=== PATIENT | female | born 1990 | race Caucasian/White ===

== ENCOUNTER → 2021-12-25 12:24 | Outpatient (BNVA) | payer OTHER, SELFPAY | PROVIDERS: Visit Provider Physician Assistant | DX: S69.82XA Other specified injuries of left wrist, hand and finger(s), initial encounter (principal); X50.1XXA Overexertion from prolonged static or awkward postures, initial encounter | CPT/HCPCS: 29125; 73110; 99203 ==

== ENCOUNTER → 2021-12-31 10:59 | Outpatient (BNVA) | payer OTHER, SELFPAY | PROVIDERS: Visit Provider Physician Assistant | DX: S64.92XA Injury of unspecified nerve at wrist and hand level of left arm, initial encounter (principal); X58.XXXA Exposure to other specified factors, initial encounter | CPT/HCPCS: 99213 ==

== ENCOUNTER → 2022-01-16 13:53 | Outpatient (BNVA) | payer OTHER, SELFPAY | PROVIDERS: Visit Provider Internal Medicine | DX: M25.532 Pain in left wrist (principal) | CPT/HCPCS: 99213 ==

== ENCOUNTER 2023-05-17 15:32 | Outpatient (AMB) | payer OTHER, SELFPAY ==
--- NOTE | 2023-05-17 15:45 | A.OFFPC_ITS ---
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 Patient states she has an OBGYN with [facility] on [facility] in [place]. Patient would like to have a referral for dermatology. Patient states she has psoriasis on her scalp and during the summer time the patch isn't as symptomatic as in the winter time where symptoms begin and spread. Patient recalls using a ketoconazole shampoo and a solution for the scalp and she does not remember the name of the solution. Shirt Maker Required: No Accompanied by: Self / Same As Patient Allergies ondansetron [From Zofran] Allergy (Severe, Verified 05/17/23 16:19) Hives Medication List - Last Reconciled 05/17/23 by Sheba Hernandez CNP aspirin (Aspirin Childrens) 162 mg PO DAILY 21-iron fu-folic acid 14 mg iron- 400 mcg ( Complete) tabs PO vitamin B complex (B Complex-Vitamin B12 tablet) 1 tab PO TID Tobacco use date assessed: 05/17/23 Dental Screening Dental Screen Date: 05/17/23 Did you have a dental visit in the last 12 months?: No Did you have a dental problem in the last 6 months where you did not have access to dental care?: No Was dental information given to patient?: Patient has dentist HPI HPI Comments History of Present Illness Details 32-year-old female [facility]. She notes she was last evaluated by her former PCP and had blood work done 3-4 years ago She denies significant PMH She states she is currently on vitamins, vitamin B6, and baby asa. No acute symptoms today. She reports psoriasis on her scalp which flares in the winter. She was followed by Dermatology and have used ketoconazole shampoo in the past with good effect. She request a referral to Dermatology that would accept her health plan. She notes she is almost 25 weeks with monochorionic-diamniotic twins. . She is followed by [facility] OBGYN. She notes her last Pap smear was last month: Normal. [facility] Social History Housing: Apartment Patient Tobacco Use Status: Never used Tobacco e-Cigarette/Vaping Use: Never Used service: No Current occupational status: employed Current occupation: [employer] Current occupational exposures/hazards: No Cognitive needs: No Hearing needs: No Vision needs: No Questionnaire PHQ-9 Over the last 2 weeks, how often have you been bothered by any of the following problems? 1. Little interest or pleasure in doing things: not at all 2. Feeling down, depressed, or hopeless: not at all 3. Trouble falling or staying asleep, or sleeping too much: not at all 4. Feeling tired or having little energy: several days 5. Poor appetite or overeating: not at all 6. Feeling bad about yourself - or that you are a failure or have let yourself or your family down: not at all 7. Trouble concentrating on things, such as reading the newspaper or watching television: not at all 8. Moving or speaking so slowly that other people could have noticed. Or the opposite - being so fidgety or restless that you have been moving around a lot more than usual: not at all 9. Thoughts that you would be better off or of hurting yourself in some way: not at all Total score: 1 Depression Screening Interpretation: Negative 51414 - PHQ-9 Billing: Yes Source: Developed by Drs. Natan Lake, Niyah Lara, Weston Willis and colleagues, with an educational travis from [employer]. Thrive Questionnaire Date Thrive assessed: 05/17/23 I am a: Patient What is your living situation today?: I have a steady place to live Within the past 12 months, did the food you bought not last and you didn't have the money to get more?: Sometimes True Within the past 12 months, did you worry whether your food would run out before you got money to buy more?: Sometimes True Do you have trouble paying for medicines?: No Do you have trouble getting transportation to medical appointments?: No Do you have trouble paying your heating and electricity bill?: Yes Do you have trouble taking care of your child, family member or friend?: No Do you have trouble with day-to-day activities such as bathing, preparing meals, shopping, managing finances, etc.?: No Are you currently unemployed and looking for a job?: No Are you interested in more education?: No Please select the resources that you would like help with: Utilities ROBBY-7 AMB Questionnaire ROBBY-7 Date ROBBY - 7 assessed: 05/17/23 Feeling nervous, anxious, or on edge: 1 = Several days Not being able to stop or control worryin = Not at all Worrying too much about different things: 0 = Not at all Trouble relaxin = Not at all Being so restless that it is hard to sit still: 1 = Several days Becoming easily annoyed or irritable: 0 = Not at all Feeling afraid as if something awful might happen: 0 = Not at all Total ROBBY-7 score (0-4 normal; 5-9 mild; 10-14 moderate; 15-21 severe): 2 Source: Developed by Drs. Natan Lake, Niyah Lara, Weston Willis and colleagues, with an educational travis from [employer]. ROBBY-7 Assessment Billing ROBBY-7 Assessment Tool: ROBBY-7 Assessment 43597 Review of Systems Const Details: Denies chills, Denies fatigue, Denies fever(s), Denies headache(s) and Denies weakness HEENT Denies change in vision, Denies dizziness, Denies headache(s), Denies hearing loss, Denies nasal congestion, Denies sinus pain, Denies sinus pressure and Denies sore throat Card Denies chest pain, Denies lightheadedness, Denies dyspnea and Denies other (palpitations) Resp Denies cough, Denies dyspnea and Denies wheezing GI Denies abdominal pain, Denies melena, Denies hematochezia, Denies change in bowel habits, Denies dyspepsia and Denies nausea Denies hematuria and Denies dysuria Musc Denies abnormal gait, Denies myalgias, Denies arthralgias, Denies numbness and Denies tingling Skin/Breast Reports psoriasis rash, Denies unusual bruising and Denies wounds Neuro Denies abnormal gait, Denies dizziness, Denies headache(s), Denies memory loss, Denies numbness, Denies Sensory deficit (Neuro), Denies tingling and Denies weakness Psych Denies anxiety, Denies depression and Denies memory loss Endo Denies cold intolerance, Denies fatigue, Denies heat intolerance, Denies polydi psia and Denies polyuria Adan/Lymph Denies easy bleeding and Denies easy bruising Aller/Immun Denies wheezing Physical exam (Primary Care) Vital Signs: Last Vital Signs Temp 97.4 F 05/17/23 15:55 Pulse 86 05/17/23 15:55 BP 102/54 L 05/17/23 15:55 Pulse Ox 98 05/17/23 15:55 Oxygen Delivery Method Room Air 05/17/23 15:55 BMI result Body Mass Index 34.0 Tobacco/Smoking Status: Tobacco use Status Tobacco use date assessed 05/17/23 05/17/23 16:11 Patient Tobacco Use Status Never used Tobacco 05/17/23 16:11 e-Cigarette/Vaping Use Never Used 05/17/23 16:11 PHQ-9: PHQ-9 Score PHQ-9: Total score 1 05/17/23 16:12 Depression Screening Interpretation: Negative Thrive Assessment: Date of Thrive Assessment Date Thrive assessed 05/17/23 05/17/23 16:12 Const Other: General: no acute distress, well developed, alert and awake Nutritional Appearance: well nourished Orientation/consciousness: patient oriented x3 HENMT Head: Yes normocephalic and Yes atraumatic Ears: hearing grossly normal bilaterally and TM's normal bilaterally General nose exam: Normal external nose present and Normal nares present Mouth: Normal oral and palatal mucosa present and moist mucous membranes Teeth and gingiva: dentition normal Throat: Yes oropharynx normal Eyes Pupils: Equal, round and reactive pupils present and Pupil accommodation reflex normal EOM: EOMs intact bilaterally Neck Neck: Yes normal visual inspection, Yes no lymphadenopathy and Yes trachea midline Thyroid: Thyroid normal Carotids: no bruits Lymphatic: no lymphadenopathy noted Chest Chest palpation & inspection: normal inspection of the chest Resp Effort & Inspection: normal respiratory effort Auscultation: clear to auscultation bilaterally Cardio Rate: regular rate Rhythm: regular rhythm Heart sounds: S1 normal heart sound present, S2 normal heart sound present, no gallops, no murmurs and no rubs Bruits: no abdominal aortic bruits and no carotid bruits GI Palpation (GI): No Abdominal aortic bruit present, Soft to palpation, nontender, No hepatosplenomegaly present and No Rebound tenderness present Auscultation: normal bowel sounds General: Yes no CVA tenderness Back/Spine/Pelvis Back: no CVA tenderness Cervical Spine: cervical ROM normal and No Cervical spine tenderness Thoracic/Lumbar Spine: thoraco-lumbar ROM normal, No pain with thoraco-lumbar ROM, No thoracic spinal tenderness and No lumbar spinal tenderness Skin General: warm and dry. Normal skin color. Normal skin turgor Lesions: no lesions Rashes: pink plaques with silvery-white scale noted to the occiput proximal to the hairline; consistent with psoriasis Trauma: no lacerations or abrasions Wounds: no wounds Nails: normal Neuro General: patient oriented x3, gait normal and CN's II-XI intact bilaterally Cranial nerves: Yes Equal, round and reactive pupils present Cognition (Neuro): normal cognition Gait exam (Neuro): Normal gait present Motor exam (neuro): 5/5 motor strength present throughout Sensory Exam: No Sensory deficit (Neuro) Deep tendon reflexes (DTR's): Right patellar reflex intensity grade: 2+ and Left patellar reflex intensity grade: 2+ Extrem General: Yes normal to inspection, No edema and No calf tenderness Psych Appearance: grossly normal Affect: normal affect Attitude: cooperative Thought process: Normal thought process present Assessment and Plan Assessment & Plan (1) Normal physical examination, routine: Code(s): Z00.00 - Encounter for general adult medical examination without abnormal findings Plan: No significant physical restrictions or limitations noted Encouraged to get fasting blood work done and schedule a telehealth visit for lab review Continue follow-up with OBGYN as planned Return with symptoms or concerns Verbalized understanding and agreed with the plan. (2) Psoriasis: Code(s): L40.9 - Psoriasis, unspecified Plan: Slaughter plaques with silvery-white scale noted to the occiput proximal to the hairline; consistent with psoriasis Ketoconazole shampoo ordered. Use as prescribed Dermatology referral made Follow-up with worsening or new signs and symptoms Verbalized understanding and agreed with treatment plan. (3) Laboratory tests ordered as part of a complete physical exam (CPE): Code(s): Z00.00 - Encounter for general adult medical examination without abnormal findings Plan: Fasting labs ordered as part of a complete physical exam. Advised to fast for at least 10 hours before getting labs drawn. May drink water Verbalized understanding and agreed with treatment plan. Orders: Orders Comprehensive [place]. Panel Fast Today Z00.00 - Encounter for general adult medical examination without abnormal findings Lipid Panel Today Z00.00 - Encounter for general adult medical examination witho ut abnormal findings TSH reflex Free T4 Today Z00.00 - Encounter for general adult medical examination without abnormal findings Complete Blood Count Auto Diff Today Z00.00 - Encounter for general adult medical examination without abnormal findings UA CC w/rflx Micro + Cult Today Z00.00 - Encounter for general adult medical examination without abnormal findings Medications: New ketoconazole 2% 1 appl topical 2XW 120 mL 1RF Coding Level of Care Code New Pt Prev Care 18-39yr(03117 Diagnoses Normal physical examination, routine Z00.00 Psoriasis L40.9 Laboratory tests ordered as part of a complete physical exam (CPE) Z00.00 Additional Codes ROBBY-7 Assessment Billing - ROBBY-7 Assessment Tool: ROBBY-7 Assessment [id number] ([id number])
[2023-05-17 15:55] VITALS: BP 102/54; PULSE 86; TEMP 36.3; O2SAT 98; BMI 34.0
== END 2023-05-17 16:37 | disposition home or self-care (01) ==
PROVIDERS: PCP Nurse Practitioner Family; Visit Provider Nurse Practitioner Family
DX: Z00.00 Encounter for general adult medical examination without abnormal findings (principal); L40.9 Psoriasis, unspecified
CPT/HCPCS: 99385

== ENCOUNTER 2024-08-25 10:11 | Outpatient (AMB) | payer OTHER, SELFPAY ==
--- NOTE | 2024-08-25 10:17 | MHC.OFFWIV ---
Intake Vital Signs 08/25/24 10:18 Height 5 ft 1 in Weight 178 lb 6 oz BMI 33.7 BP 120/70 Blood Pressure Location Lt brachial Position Sitting Pulse 92 Pulse Source Pulse Oximeter Pulse Oximetry (%) 99 Oxygen Delivery Method Room Air Intake Visit Reasons: est/ strep throat Intake Note: Patient is here today for possible strep throat ongoing since last night. Symptoms are white spot at the back of throat and hard to swallow. 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 She reports sudden onset of sore throat yesterday associated with painful swallowing, headache and body aches. She did not try any medications at home prior to coming in. Exam Awake alert NAD Sclera and conjunctiva clear bilat Nares mild drainage, turbinates within normal limits, no sinus tenderness with palpation bilat TM intact and clear bilat MMM, pharynx diffuse erythema with exudate, managing secretions, uvula midline, positive cervical adenopathy bilat Plan: tx for strep edu on reasons to RTO This note is constructed using voice recognition software. While every effort has been made to ensure accuracy in instrument repairer helper, still errors may have been included Sometimes, these errors may affect the content or meaning of the given sentence . [facility] Social History Housing: Apartment Patient Tobacco Use Status: Never used Tobacco e-Cigarette/Vaping Use: Never Used service: No Current occupational status: employed Current occupation: [employer] Current occupational exposures/hazards: No Cognitive needs: No Hearing needs: No Vision needs: No Physical Exam Vital Signs: Last Vital Signs Pulse 92 08/25/24 10:18 BP 120/70 08/25/24 10:18 Pulse Ox 99 08/25/24 10:18 Oxygen Delivery Method Room Air 08/25/24 10:18 BMI result Body Mass Index 33.7 Assessment & Plan Assessment & Plan (1) Strep pharyngitis: Code(s): J02.0 - Streptococcal pharyngitis Plan: . Plan . Medications: New amoxicillin-pot clavulanate 875-125 mg 1 tab PO BID 7 days 14 tabs 0RF Patient Instructions: Good hand hygiene and respiratory etiquette can reduce the spread of all types of group A strep infection. Hand hygiene is especially important after coughing and sneezing and before preparing foods or eating. Good respiratory etiquette involves covering your cough or sneeze. Do not share food or drinks. Treating an infected person with an antibiotic for 12 hours or longer limits their ability to transmit the bacteria. Thus, people with group A strep pharyngitis should stay home from work, school, or daycare until: They are afebrile AND At least 12?24 hours after starting appropriate antibiotic therapy I also recommend changing toothbrush and washing bed linen in hot water 24 hours after starting antibiotics Coding Level of Care Code Est Pt Level 3 (73198) Diagnoses Strep pharyngitis J02.0
[2024-08-25 10:18] VITALS: BP 120/70; PULSE 92; O2SAT 99; BMI 33.7
== END 2024-08-25 10:31 | disposition home or self-care (01) ==
LOC: HO.HMCWIW 10:11
PROVIDERS: PCP Nurse Practitioner Family; Visit Provider Nurse Practitioner Family
DX: J02.0 Streptococcal pharyngitis (principal)

== ENCOUNTER → 2024-08-25 10:11 | Outpatient (BNVA) | payer OTHER, SELFPAY | PROVIDERS: PCP Nurse Practitioner Family; Visit Provider Nurse Practitioner Family | DX: J02.0 Streptococcal pharyngitis (principal) | CPT/HCPCS: 99212 ==